=== PATIENT | female | born 1995 | race Two or more races ===

== ENCOUNTER 2019-10-03 17:31 | Emergency (ER) | payer OTHER ==
[2019-10-03 17:40] VITALS: BP 133/80; PULSE 98; TEMP 98.6; BMI 20.3
--- NOTE | 2019-10-03 17:41 | PDOC ---
Rapid Medical Evaluation Chief Complaint: Weakness Time Seen by Provider: 10/03/19 17:38 Medical Evaluation: 10/03/19 17:38 The patient is a 24 y/o F with PMH of seizure?, presents to the ED today with generalized weakness and reported seizure/syncope. Friend states that the "patient spaced out, came to, and then vomited". She states the patient also passed out? Pt reports feeling weak and shaky at this time. Denies taking seizure medications. Reports binge drinking this week. last drink was last night Exam: NAD, AAOX3 speaking in full sentences. No gross neuro deficit Orders: labs, urine, ekg Pt to proceed to the ER for further evaluation Discharge Disposition - Diagnosis Weakness - Referrals - Patient Instructions - Post Discharge Activity
[2019-10-03] MEDS ORDERED: chlordiazePOXIDE HCL 25 MG CAPSULE PO ONE ×2 (18:51→20:25)
[2019-10-03] MEDS ORDERED: ONDANSETRON *ODT* 4 MG TABLET SL ONE (19:19)
[2019-10-03] MEDS ORDERED: ONDANSETRON *ODT* 4 MG TABLET ONE (19:21)
--- NOTE | 2019-10-03 19:44 | PDOC ---
History of Present Illness - General Chief Complaint: Weakness Stated Complaint: SEIZURE Time Seen by Provider: 10/03/19 17:38 - History of Present Illness Initial Comments: 10/03/19 19:26 24yo F p/w weakness w/ one episode of fainting and vomting after drinking one bottle of Wolf each day x2wks. She has been feeling weak throughout the 2week period, but last night it got more severe. Today she woke up from a nap and then vomited and then alleges to have syncopized. She got scared, so she came to the ED. She states her last drink was at 0300 today. Denies long car rides/air travel, using control pills, calf/leg swelling or pain, ever having a seizure from alcohol, or family history of cardiac disease. Denies fever, cough, endorses a mild headache, and she states she feels "shaky." She states that she has felt this before when withdrawing from EtOH. PMH: asthma PSH: none FHx: no cardiac hx. SHx: former tobacco user, drinks EtOH everyday, uses marijuana regularly. She denies use of any other drug. +Sexually active with one male. Does not use contraception or protection. 10/03/19 19:44 10/03/19 19:57 ROS CONSTITUTIONAL: ++ generalized weakness, Absent: fever, chills, diaphoresis, malaise, loss of appetite HEENT: Absent: rhinorrhea, nasal congestion, throat pain, throat swelling, difficulty swallowing, CARDIOVASCULAR: + syncope, lightheadedness, Absent: chest pain, palpitations, irregular heart rate, peripheral edema RESPIRATORY: Absent: cough, shortness of breath, dyspnea with exertion, orthopnea, wheezing, hemoptysis GASTROINTESTINAL: ++ nausea, vomiting, Absent: abdominal pain, abdominal distension,diarrhea, constipation, GENITOURINARY: Absent: dysuria, frequency, urgency, hesitancy, hematuria, flank pain, genital pain MUSCULOSKELETAL: Absent: myalgia, arthralgia, joint swelling SKIN: Absent: rash, itching, pallor NEUROLOGIC: Absent: headache, focal weakness or paresthesias, dizziness, unsteady gait, seizure, mental status changes, bladder or bowel incontinence PSYCHIATRIC: Absent: anxiety, depression, suicidal or homicidal ideation, hallucinations. States that she wants help quitting drinking. PE GENERAL: Well developed, thin. Awake and alert. No acute distress. HEENT: Normocephalic, atraumatic. PERRLA, EOMI. No conjunctival pallor. Sclera are non- icteric. Moist mucous membranes. Oropharynx is clear.+Tongue fasiculations. NECK: Supple. Full ROM. No lymphadenopathy. CARDIOVASCULAR: Regular rate and rhythm. No murmurs, rubs, or gallops. Distal pulses are 2+ and symmetric. PULMONARY: No evidence of respiratory distress. Lungs clear to auscultation bilaterally. No wheezing, rales or rhonchi. ABDOMINAL: Soft. Non-distended. No rebound or guarding. No organomegaly. Normoactive bowel sounds. MUSCULOSKELETAL Normal range of motion at all joints. No bony deformities or tenderness. No CVA tenderness. EXTREMITIES: No cyanosis. No clubbing. No edema. No calf tenderness. SKIN: Warm and dry. Normal capillary refill. No rashes. No jaundice. NEUROLOGICAL: Alert, awake, appropriate. Cranial nerves 2-12 intact. No deficits to light touch in face, upper extremities and lower extremities. No motor deficits in the in face, upper extremities and lower extremities. Normoreflexic in the upper and lower extremities. Normal speech. Toes are down-going bilaterally. Gait is normal without ataxia. PSYCHIATRIC: Cooperative. Good eye contact. Appropriate mood and affect. 24yo F who admits to drinking 1bottle Pana per day [id number] p/w weakness and exam findings consistent w/ alcohol withdrawal. Plan: hCG test give resources for detox PO challenge Librium 25mg DC home. Past History - Medical History Allergies/Adverse Reactions: Allergies Allergy/AdvReac Type Severity Reaction Status Date / Time cephalexin [From Keflex] Allergy Verified 10/03/19 17:40 COPD: No Seizures: Yes - Psycho-Social/Smoking History Smoking History: Current every day smoker Information on smoking cessation initiated: No - Substance Abuse Hx (Audit-C & DAST Scrn) How often the patient has a drink containing alcohol: 4 0r more times/wk Score: In Men: 4 or > Positive; In Women: 3 or > Positive: 4 Screen Result (Pos requires Nsg. Audit-10AR): Positive *Physical Exam - Vital Signs Last Vital Signs Temp Pulse Resp BP Pulse Ox 98.6 F 98 H 18 133/80 100 10/03/19 17:36 10/03/19 17:36 10/03/19 17:36 10/03/19 17:36 10/03/19 17:36 ED Treatment Course - ADDITIONAL ORDERS Additional order review: Laboratory Results 10/03/19 19:07 POC Glucometer 93 10/03/19 19:07 POC Glucometer 93 - Medications Given in the ED: ED Medications Discontinued Medications Generic Name Dose Route Start Last Admin Trade Name Tonya PRN Reason Stop Dose Admin Chlordiazepoxide HCl 50 mg 10/03/19 18:51 10/03/19 19:15 Librium - PO 10/03/19 18:52 Not Given ONCE ONE Discharge - Discharge Information Problems reviewed: Yes Clinical Impression/Diagnosis: Weakness Alcohol withdrawal Qualifiers: Complication of substance-induced condition: uncomplicated Qualified Code(s): F10.230 - Alcohol dependence with withdrawal, uncomplicated Condition: Good Disposition: HOME - Admission No - Follow up/Referral Referrals: ON STAFF,NOT [Primary Care Provider] - - Patient Discharge Instructions Patient Printed Discharge Instructions: DI for Alcohol Abuse, Drug and Alcohol Withdrawal, DI for Drug or Alcohol Withdrawal Additional Instructions: You must return to the Emergency Department with any new complaints, if your symptoms persist and do not improve or if you develop any other new or worsening concerns. As discussed, please call to follow up with your Primary Care physician in 1-2 days to discuss what happened to you in the emergency room, and make sure you are being looked after and taken care of. Your emergency room visit is not complete without this follow up appointment. Please read the attached handouts for further information about your ER visit and what you should do moving forward. Thank you for coming to the [facility]. We hope you feel better soon! You came to ED with weakness. We examined and questioned you and deemed that the symptoms you are feeling might be related to alcohol use and withdrawal. Please follow up with your primary doctor or a detox center within one day. You may call or look-online at [facility]'s detox options. If they do not have one you may search for detox options in [facility] or wherever you would like. It is important that you seek help while you are motivated to quit alcohol, as continued drinking can lead to serious complications including multiple organ failure, irreversible disability, and . - Post Discharge Activity
[2019-10-03] MEDS ORDERED: chlordiazePOXIDE HCL 25 MG CAPSULE ONE (20:26)
--- NOTE | 2019-10-03 20:40 | PDOC ---
Documentation entered by Elton Woods SCRIBE, acting as scribe for Felicitas Wong MD. Felicitas Wong MD: This documentation has been prepared by the sagaribeChuck Alexis, SCRIBE, under my direction and personally reviewed by me in its entirety. I confirm that the documentation accurately reflects all work, treatment, procedures, and medical decision making performed by me. Attending Attestation - Resident Resident Name: Alexandre Hernandez - ED Attending Attestation I have performed the following: I have examined & evaluated the patient, The case was reviewed & discussed with the resident, I agree w/resident's findings & plan, Exceptions are as noted - HPI HPI: 10/03/19 20:13 The patient is a 24 year old female with a significant past medical history of asthma who presents to the ED for evaluation of generalized weakness s/p a syncopal episode this afternoon. She endorses one episode of NBNB vomiting when waking up from a nap immediately before this syncopal episode. Per friend at bedside, the patient appeared spaced out, came to, and then vomited. The patient reports feeling weak for the past two weeks while she has been consuming one bottle of Rafaela each day (last drink was 3am today). The patient notes a mild headache and feeling shaky, which is similar to when she withdraws from alcohol. In 2019, the patient reports a fall in which she hit her head, causing a seizure. Allergies: cephalexin Social Hx: The patient reports consuming alcohol daily,binge drinking this week and her last drink was last night. She endorses she quit smoking cigarettes but smokes marijuana regularly. PCP: Not on staff - Physicial Exam PE: 10/03/19 20:14 General: well appearing HEENT: NCAT, MMM, no tongue fasciculations Chest: CTAB, good air entry CVS: + s1 s2, RRR Abdomen: soft, nt nd no rebound no guarding Neuro: awake, alert, responds to questions appropriately, very mild hand tremors, ambulatory with steady gait, no focal deficits - Medical Decision Making 10/03/19 20:16 24 yo F with syncopal episode and 1 episode of vomiting after binge drinking, EKG NSR without ischemic changes, PERC negative, symptoms likely 2/2 dehydration/volume status and excessive etoh consumption. Plan: -check hcg -librium -counseled on dangers of excessive etoh consumption, patient states she is willing to accept information regarding detox -if hcg negative will d/c iwth return precautioins, patient given info on detox This clinical encounter is taking place during a federal and state health care emergency attributable to the novel [place] Virus pandemic. The [place] of the Department of Health and Human Services has declared, pursuant to the Public Health Service Act 319F-3 (42 U.S.C. 247d-6d), that a covered persons activities related to medical countermeasures against COVID-19 will be immune from liability under Federal and State law. Discharge - Discharge Information Problems reviewed: Yes Clinical Impression/Diagnosis: Weakness - Follow up/Referral Referrals: ON STAFF,NOT [Primary Care Provider] - - Patient Discharge Instructions - Post Discharge Activity
--- NOTE | 2019-10-04 09:33 | EKG ---
Test Reason : Blood Pressure : / mmHG Vent. Rate : 090 BPM Atrial Rate : 090 BPM P-R Int : 126 ms QRS Dur : 082 ms QT Int : 354 ms P-R-T Axes : 046 063 037 degrees QTc Int : 433 ms NORMAL SINUS RHYTHM NORMAL ECG NO PREVIOUS ECGS AVAILABLE Confirmed by Alton Arthur ([id number]) on 10/04/2019 9:32:42 AM Referred By: Confirmed By:Alton Arthur
== END 2019-10-03 20:32 | disposition home or self-care (01) ==
LOC: JER 17:31
DX: R53.1 Weakness (principal); F10.230 Alcohol dependence with withdrawal, uncomplicated
CPT/HCPCS: 82962; 84703; 93005; 93010; 99284-25; Q0162